=== PATIENT | male | born 1980 ===

== ENCOUNTER 2025-02-13 19:17 | Emergency (ER) | payer SELFPAY ==
[~2025-02-13] VITALS: Ht 175.3 cm; Wt 104.5 kg
[2025-02-13] MEDS ORDERED: tetanus & diphtheria toxoid (Td) vaccine 0.5ml IMVAC ONE (19:25)
[2025-02-13] MEDS: TETanus/Pertussis (Acell)/Diphther VAC/PF (Tdap-Adult) 0.5ml syringe IMVAC ONE (20:02)
[2025-02-13] MEDS: bacitracin 15gm ointment TP ONE (20:26)
[2025-02-13 21:19] VITALS: BP 167/118; PULSE 104; RESP 18; TEMP 98.1; O2SAT 96
[2025-02-13 21:47] LABS: HIV ANTIBODY 1&2 RAPID NON-REACTIVE (Neg)
[2025-02-16 06:15] LABS: HEP B CORE AB, IGM Negative (Negative); HEP B CORE AB, TOT Negative (Negative); HEP B SURF AB Non Reactive (.)
== END 2025-02-13 21:22 ==
LOC: ER 19:21
DX: S90.01XA Contusion of right ankle, initial encounter (principal); S80.212A Abrasion, left knee, initial encounter; G89.11 Acute pain due to trauma; R51.9 Headache, unspecified; M54.6 Pain in thoracic spine; W18.30XA Fall on same level, unspecified, initial encounter; Y93.89 Activity, other specified; Y92.89 Other specified places as the place of occurrence of the external cause; Y99.8 Other external cause status
CPT/HCPCS: 36415; 70450; 72125; 72128; 72131; 73564; 73600; 82948; 86703; 86704; 86705; 86706; 99284; A6449